=== PATIENT | female | born 1950 | race African-American/Black ===

== ENCOUNTER 2018-10-09 17:23 | Inpatient (IN) ==
[2018-10-09] MEDS ORDERED: diphenhydrAMINE CAP 25 MG CAPSULE PO PRN (18:36)
[2018-10-09] MEDS ORDERED: DOCUSATE SODIUM 100 MG CAPSULE PO PRN (18:36)
[2018-10-09] MEDS ORDERED: POTASSIUM CHLORIDE 20 MEQ TABLET PO PRN (18:36)
[2018-10-09] MEDS ORDERED: BISACODYL 5 MG TABLET PO PRN (18:36)
[2018-10-09] MEDS ORDERED: ACETAMINOPHEN 325 MG TABLET PO PRN (18:36)
[2018-10-09] MEDS ORDERED: MORPHINE 4 MG/1 ML VIAL IV PRN (18:36)
[2018-10-09] MEDS ORDERED: ONDANSETRON 4 MG/2 ML VIAL IV PRN (18:36)
[2018-10-09] MEDS ORDERED: guaiFENesin/DM ER 600-30 MG TABLET PO PRN (18:36)
[2018-10-09] MEDS ORDERED: ZALEPLON 5 MG CAPSULE PO PRN (18:36)
[2018-10-09] MEDS ORDERED: MAGNESIUM SULF RIDER 2 GM in PREMIX 1 EACH IV PRN (18:36)
[2018-10-09] MEDS ORDERED: MAGNESIUM SULF RIDER 4 GM in PREMIX 1 EACH IV PRN (18:36)
[2018-10-10 04:45] LABS: Basophils % 0.3 % (0.0-0.8); Eosinophils # 0.2 10*3/uL (0.0-0.87); Eosinophils % 2.2 % (0.00-10.9); Hematocrit 40.9 VOL% (35.7-47.0); Hemoglobin 12.4 GM/DL (12.0-16.0); Immature Granulocytes % 0.4 %; Immature Granulocytes Absolute 0.03 #; Lymphocytes # 2.5 10*3/uL (1.4-4.0); Lymphocytes % 32.1 % (21.3-54.2); Mean Corpuscular HGB Conc 30.3 GM/DL (32-36); Mean Corpuscular Hemoglobin 25 PG (27-34); Mean Corpuscular Volume 83.8 FL (87-102); Mean Platelet Volume 9.7 FL (9.6-12.0); Monocytes # 0.8 10*3/uL (0.11-0.8); Monocytes % 10.5 % (1.7-12.7); Neutrophils # 4.3 10*3/uL (1.4-7.4); Neutrophils % 54.5 % (38.7-73.9); Platelet Count 308 T/CUMM (130-400); Red Blood Count 4.88 MC/CUMM (3.8-5.5); Red Cell Distribution Width 15.2 % (9.3-17.3); White Blood Count 7.8 T/CUMM (4-12)
[2018-10-10 04:53] LABS: PT Patient Result 10.8 SECS
[2018-10-10 05:14] LABS: Calcium 8.5 MG/DL (8.5-10.1); Osmolality,Calculated 285.1 MOS/KG (273-304); Potassium 3.8 MMOL/L (3.5-5.1)
[2018-10-10] MEDS: PANTOPRAZOLE 40 MG TABLET PO SCH (12:14)
[2018-10-10] MEDS: ASPIRIN EC 81 MG TABLET PO SCH (12:54)
[2018-10-10] MEDS ORDERED: ACETAMINOPHEN 325 MG TABLET PO PRN (16:34)
[2018-10-10] MEDS ORDERED: IBUPROFEN 600 MG TABLET PO PRN (21:41)
[2018-10-11 04:47] LABS: Basophils % 0.2 % (0.0-0.8); Eosinophils # 0.2 10*3/uL (0.0-0.87); Eosinophils % 2.1 % (0.00-10.9); Hematocrit 40.3 VOL% (35.7-47.0); Hemoglobin 12.4 GM/DL (12.0-16.0); Immature Granulocytes % 0.2 %; Immature Granulocytes Absolute 0.02 #; Lymphocytes # 1.9 10*3/uL (1.4-4.0); Lymphocytes % 23.3 % (21.3-54.2); Mean Corpuscular HGB Conc 30.8 GM/DL (32-36); Mean Corpuscular Hemoglobin 26 PG (27-34); Mean Corpuscular Volume 83.6 FL (87-102); Mean Platelet Volume 9.1 FL (9.6-12.0); Monocytes # 1.1 10*3/uL (0.11-0.8); Monocytes % 13.2 % (1.7-12.7); Platelet Count 277 T/CUMM (130-400); Red Blood Count 4.82 MC/CUMM (3.8-5.5); Red Cell Distribution Width 15.1 % (9.3-17.3); White Blood Count 8.1 T/CUMM (4-12)
[2018-10-11 05:04] LABS: Calcium 8.2 MG/DL (8.5-10.1); Osmolality,Calculated 279.5 MOS/KG (273-304); Potassium 3.7 MMOL/L (3.5-5.1)
[2018-10-11 05:23] LABS: Calcium 8.2 MG/DL (8.5-10.1); Osmolality,Calculated 282.4 MOS/KG (273-304); Potassium 3.7 MMOL/L (3.5-5.1)
[2018-10-11] MEDS ORDERED: DIAZEPAM 5 MG TABLET PO ONE (07:16)
[2018-10-11] MEDS ORDERED: diphenhydrAMINE CAP 25 MG CAPSULE PO ONE (07:18)
[2018-10-11] MEDS ORDERED: HEPARIN/NACL 0.9% 2 UNITS/ML 500 ML IV ONE (08:37)
[2018-10-11] MEDS ORDERED: LIDOCAINE 1% 20 ML VIAL ONE (08:37)
[2018-10-11] MEDS ORDERED: MIDAZOLAM 2 MG/2 ML VIAL ONE ×6 (08:43→10:43)
[2018-10-11] MEDS ORDERED: fentaNYL 100 MCG/2 ML VIAL ONE ×2 (08:43→10:06)
[2018-10-11] MEDS ORDERED: amLODIPine 10 MG TABLET PO SCH (09:00)
[2018-10-11] MEDS ORDERED: HEPARIN 5,000 UNIT/1 ML VIAL ONE (09:38)
[2018-10-11] MEDS ORDERED: ISOPROTERENOL 1 MG/5 ML VIAL IV ONE (09:48)
[2018-10-11] MEDS ORDERED: amLODIPine 5 MG TABLET PO SCH (11:34)
[2018-10-11] MEDS: ASPIRIN EC 81 MG TABLET PO SCH (12:32)
[2018-10-11] MEDS: ENOXAPARIN 40 MG/0.4 ML SYRINGE SUBCUT SCH (12:32)
[2018-10-11] MEDS: METOPROLOL TARTRATE 50 MG TABLET PO SCH ×2 (12:32→21:59)
[2018-10-11] MEDS: PANTOPRAZOLE 40 MG TABLET PO SCH (12:32)
[2018-10-11] MEDS: LOSARTAN 25 MG TABLET PO SCH (12:33)
[2018-10-11] MEDS: amLODIPine 5 MG TABLET PO SCH (12:39)
[2018-10-12 04:07] LABS: Basophils % 0.2 % (0.0-0.8); Eosinophils # 0.1 10*3/uL (0.0-0.87); Eosinophils % 0.9 % (0.00-10.9); Hematocrit 41.7 VOL% (35.7-47.0); Hemoglobin 13.1 GM/DL (12.0-16.0); Immature Granulocytes % 0.4 %; Immature Granulocytes Absolute 0.05 #; Lymphocytes # 1.8 10*3/uL (1.4-4.0); Lymphocytes % 16.1 % (21.3-54.2); Mean Corpuscular HGB Conc 31.4 GM/DL (32-36); Mean Corpuscular Hemoglobin 26 PG (27-34); Mean Corpuscular Volume 82.7 FL (87-102); Mean Platelet Volume 9.3 FL (9.6-12.0); Monocytes # 1.4 10*3/uL (0.11-0.8); Monocytes % 12.3 % (1.7-12.7); Neutrophils # 7.9 10*3/uL (1.4-7.4); Neutrophils % 70.1 % (38.7-73.9); Platelet Count 290 T/CUMM (130-400); Red Blood Count 5.04 MC/CUMM (3.8-5.5); Red Cell Distribution Width 15.1 % (9.3-17.3); White Blood Count 11.2 T/CUMM (4-12)
[2018-10-12 04:43] LABS: Calcium 8.3 MG/DL (8.5-10.1); Osmolality,Calculated 273.8 MOS/KG (273-304)
[2018-10-12 07:40] VITALS: BP 151/77
[2018-10-12] MEDS: PANTOPRAZOLE 40 MG TABLET PO SCH (08:52)
[2018-10-12] MEDS: LOSARTAN 25 MG TABLET PO SCH (08:52)
[2018-10-12] MEDS: ENOXAPARIN 40 MG/0.4 ML SYRINGE SUBCUT SCH (08:52)
[2018-10-12] MEDS: METOPROLOL TARTRATE 50 MG TABLET PO SCH (08:52)
[2018-10-12] MEDS: amLODIPine 5 MG TABLET PO SCH (08:52)
[2018-10-12] MEDS: ASPIRIN EC 81 MG TABLET PO SCH (08:52)
[2018-10-13] MEDS ORDERED: LOSARTAN 50 MG TABLET PO SCH (09:00)
== END 2018-10-12 13:00 | disposition home or self-care (01) | DRG 274 ==
LOC: N.TELEN 17:23
PROVIDERS: ADMIT Internal Medicine Clinical Cardiac Electrophysiology; ATTEND Internal Medicine Clinical Cardiac Electrophysiology

== ENCOUNTER 2018-11-06 05:38 | Inpatient (IN) ==
[2018-10-31 16:22] LABS: Apearance,Urine CLEAR (Clear); Bacteria,Urine Occasional /HPF (Few); Bilirubin,Urine Negative (Negative); Blood, Urine Small mg/dL (Negative); Glucose,Urine (UA) Negative (Negative); Ketones,Urine Negative (Negative); Mucus,Urine Occasional /LPF (Occasional); Nitrite,Urine Negative (Negative); Protein,Urine Negative; RBC,Urine 2 /HPF (0-4); Squamous Epithelial Cell,Urine Occasional /HPF (0-10); Urine Color Yellow (Yellow); Urine Specific Gravity 1.017 (1.001-1.035); Urine Urobilinogen < 2.0 EU/DL (0.2-1.0); WBC,Urine 5 /HPF (0-6)
[2018-11-06] MEDS ORDERED: FAMOTIDINE 20 MG TABLET PO ONE (06:45)
[2018-11-06] MEDS ORDERED: DIAZEPAM 5 MG TABLET PO ONE (06:45)
[2018-11-06] MEDS ORDERED: LACTATED RINGERS 1,000 ML IV SCH (07:00)
[2018-11-06] MEDS ORDERED: VANCOMYCIN INJ 1,000 MG in SODIUM CHLORIDE 0.9% 250 ML IV ONE (08:00)
[2018-11-06] MEDS ORDERED: ceFAZolin 1,000 MG in SYRINGE 1 EACH IV ONE (08:00)
[2018-11-06] MEDS ORDERED: ceFAZolin 1,000 MG VIAL ONE (08:42)
[2018-11-06] MEDS ORDERED: VANCOMYCIN 1,000 MG VIAL ONE (08:42)
[2018-11-06] MEDS ORDERED: DIAZEPAM 5 MG TABLET ONE ×2 (08:43)
[2018-11-06] MEDS ORDERED: FAMOTIDINE 20 MG TABLET ONE (08:43)
[2018-11-06] MEDS ORDERED: ROPIVACAINE 0.5% 30 ML VIAL ONE (08:47)
[2018-11-06] MEDS ORDERED: BUPIVACAINE SPINAL 0.75% 2 ML AMP SPINAL ONE (08:59)
[2018-11-06] MEDS ORDERED: BACITRACIN OINT 0.9 GM PACK TOP ONE (09:38)
[2018-11-06] MEDS ORDERED: MORPHINE 4 MG/1 ML VIAL IV PRN ×2 (09:53)
[2018-11-06] MEDS ORDERED: MAGNESIUM HYDROXIDE SUSP 30 ML UDCUP PO PRN (09:53)
[2018-11-06] MEDS ORDERED: ZALEPLON 5 MG CAPSULE PO PRN (09:53)
[2018-11-06] MEDS ORDERED: ONDANSETRON 4 MG/2 ML VIAL IV PRN (09:53)
[2018-11-06] MEDS ORDERED: diphenhydrAMINE CAP 25 MG CAPSULE PO PRN (09:53)
[2018-11-06] MEDS ORDERED: oxyCODONE IR 5 MG TABLET PO PRN ×2 (09:53)
[2018-11-06] MEDS ORDERED: TRANEXAMIC ACID 1,000 MG/10 ML VIAL ONE (10:09)
[2018-11-06] MEDS ORDERED: PROPOFOL 500 MG/50 ML BOTTLE IV ONE (11:15)
[2018-11-06] MEDS ORDERED: PHENYLEPHRINE 1 MG/10 ML SYRINGE IV ONE (11:15)
[2018-11-06] MEDS ORDERED: SODIUM CHLORIDE 0.9% 250 ML IV ONE (11:15)
[2018-11-06] MEDS ORDERED: fentaNYL 100 MCG/2 ML VIAL ONE (11:15)
[2018-11-06] MEDS ORDERED: MIDAZOLAM 2 MG/2 ML VIAL ONE (11:15)
[2018-11-06] MEDS ORDERED: DEXAMETHASONE 4 MG/1 ML VIAL ONE (11:15)
[2018-11-06] MEDS: KETOROLAC 30 MG/1 ML VIAL IV SCH ×2 (13:19→19:40)
[2018-11-06 13:27] LABS: Basophils % 0.1 % (0.0-0.8); Eosinophils # 0.1 10*3/uL (0.0-0.87); Eosinophils % 0.5 % (0.00-10.9); Hematocrit 41.7 VOL% (35.7-47.0); Hemoglobin 12.8 GM/DL (12.0-16.0); Immature Granulocytes % 0.6 %; Immature Granulocytes Absolute 0.06 #; Lymphocytes # 1.2 10*3/uL (1.4-4.0); Lymphocytes % 12.1 % (21.3-54.2); Mean Corpuscular HGB Conc 30.7 GM/DL (32-36); Mean Corpuscular Hemoglobin 26 PG (27-34); Mean Corpuscular Volume 84.1 FL (87-102); Mean Platelet Volume 10.5 FL (9.6-12.0); Monocytes # 0.2 10*3/uL (0.11-0.8); Monocytes % 2.5 % (1.7-12.7); Neutrophils # 8.1 10*3/uL (1.4-7.4); Neutrophils % 84.2 % (38.7-73.9); Platelet Count 279 T/CUMM (130-400); Red Blood Count 4.96 MC/CUMM (3.8-5.5); White Blood Count 9.7 T/CUMM (4-12)
[2018-11-06 13:43] LABS: Calcium 8.9 MG/DL (8.5-10.1); Osmolality,Calculated 282.3 MOS/KG (273-304); Potassium 4.3 MMOL/L (3.5-5.1)
[2018-11-06] MEDS: ACETAMINOPHEN 500 MG TABLET PO SCH ×2 (14:05→21:03)
[2018-11-06] MEDS: ceFAZolin 2,000 MG in PREMIX 1 EACH IV SCH ×2 (14:10→21:08)
[2018-11-06] MEDS: LACTATED RINGERS 1,000 ML IV SCH ×3 (15:07→23:13)
[2018-11-06] MEDS: DOCUSATE SODIUM 100 MG CAPSULE PO SCH (21:02)
[2018-11-06] MEDS: METOPROLOL TARTRATE 50 MG TABLET PO SCH (21:07)
[2018-11-07] MEDS: ACETAMINOPHEN 500 MG TABLET PO SCH ×2 (01:22→09:36)
[2018-11-07] MEDS: KETOROLAC 30 MG/1 ML VIAL IV SCH (01:23)
[2018-11-07] MEDS: LACTATED RINGERS 1,000 ML IV SCH (04:19)
[2018-11-07 06:06] LABS: Basophils % 0.1 % (0.0-0.8); Hemoglobin 11.4 GM/DL (12.0-16.0); Immature Granulocytes % 0.4 %; Immature Granulocytes Absolute 0.05 #; Lymphocytes # 1.1 10*3/uL (1.4-4.0); Lymphocytes % 8.9 % (21.3-54.2); Mean Corpuscular HGB Conc 30.8 GM/DL (32-36); Mean Corpuscular Hemoglobin 26 PG (27-34); Mean Corpuscular Volume 83.5 FL (87-102); Mean Platelet Volume 10.6 FL (9.6-12.0); Monocytes # 0.9 10*3/uL (0.11-0.8); Monocytes % 7.2 % (1.7-12.7); Neutrophils # 10.4 10*3/uL (1.4-7.4); Neutrophils % 83.4 % (38.7-73.9); Platelet Count 241 T/CUMM (130-400); Red Blood Count 4.43 MC/CUMM (3.8-5.5); White Blood Count 12.4 T/CUMM (4-12)
[2018-11-07] MEDS: FONDAPARINUX 2.5 MG/0.5 ML SYRINGE SUBCUT SCH (06:14)
[2018-11-07 06:16] LABS: Calcium 8.8 MG/DL (8.5-10.1); Osmolality,Calculated 280.5 MOS/KG (273-304); Potassium 3.9 MMOL/L (3.5-5.1)
[2018-11-07] MEDS ORDERED: KETOROLAC 30 MG/1 ML VIAL IV SCH (06:30)
[2018-11-07] MEDS: DOCUSATE SODIUM 100 MG CAPSULE PO SCH ×2 (10:05→20:38)
[2018-11-07] MEDS: LOSARTAN 50 MG TABLET PO SCH (10:05)
[2018-11-07] MEDS: amLODIPine 10 MG TABLET PO SCH (10:06)
[2018-11-07] MEDS: METOPROLOL TARTRATE 50 MG TABLET PO SCH ×2 (10:06→20:38)
[2018-11-07] MEDS: PANTOPRAZOLE 40 MG TABLET PO SCH (10:07)
[2018-11-07] MEDS: CELECOXIB 200 MG CAPSULE PO SCH (15:04)
[2018-11-08 05:09] LABS: Basophils % 0.1 % (0.0-0.8); Eosinophils # 0.1 10*3/uL (0.0-0.87); Eosinophils % 0.7 % (0.00-10.9); Hematocrit 33.4 VOL% (35.7-47.0); Hemoglobin 10.1 GM/DL (12.0-16.0); Immature Granulocytes % 0.5 %; Immature Granulocytes Absolute 0.07 #; Lymphocytes # 2.4 10*3/uL (1.4-4.0); Lymphocytes % 17.8 % (21.3-54.2); Mean Corpuscular HGB Conc 30.2 GM/DL (32-36); Mean Corpuscular Hemoglobin 25 PG (27-34); Mean Corpuscular Volume 83.7 FL (87-102); Mean Platelet Volume 10.8 FL (9.6-12.0); Monocytes # 1.4 10*3/uL (0.11-0.8); Monocytes % 10.4 % (1.7-12.7); Neutrophils # 9.6 10*3/uL (1.4-7.4); Neutrophils % 70.5 % (38.7-73.9); Platelet Count 223 T/CUMM (130-400); Red Blood Count 3.99 MC/CUMM (3.8-5.5); White Blood Count 13.6 T/CUMM (4-12)
[2018-11-08] MEDS: FONDAPARINUX 2.5 MG/0.5 ML SYRINGE SUBCUT SCH (06:29)
[2018-11-08] MEDS ORDERED: ASPIRIN EC 81 MG TABLET PO SCH (09:00)
[2018-11-08] MEDS: CELECOXIB 200 MG CAPSULE PO SCH (09:23)
[2018-11-08] MEDS: DOCUSATE SODIUM 100 MG CAPSULE PO SCH (09:23)
[2018-11-08] MEDS: PANTOPRAZOLE 40 MG TABLET PO SCH (09:24)
[2018-11-08] MEDS: LOSARTAN 50 MG TABLET PO SCH (09:24)
[2018-11-08] MEDS: METOPROLOL TARTRATE 50 MG TABLET PO SCH (09:24)
[2018-11-08] MEDS: amLODIPine 10 MG TABLET PO SCH (09:24)
[2018-11-08 11:59] VITALS: BP 150/82
== END 2018-11-08 14:44 | disposition home health service (06) | DRG 470 ==
LOC: N.SDSINP 05:38 → N.OR 05:38 → N.SDSINP 09:53 → N.3E 12:05
PROVIDERS: ADMIT Orthopaedic Surgery; ATTEND Orthopaedic Surgery

== ENCOUNTER 2022-04-26 05:30 | Observation (INO) ==
[2022-04-26] MEDS ORDERED: ceFAZolin 2,000 MG/50 ML DUPLEX IV ONE (06:00)
[2022-04-26] MEDS ORDERED: VANCOMYCIN INJ 1,000 MG in SODIUM CHLORIDE 0.9% 250 ML IV ONE (06:00)
[2022-04-26] MEDS ORDERED: FAMOTIDINE 20 MG TABLET PO ONE (06:44)
[2022-04-26] MEDS ORDERED: ACETAMINOPHEN 500 MG TABLET PO ONE (06:44)
[2022-04-26] MEDS ORDERED: BACITRACIN OINT 0.9 GM PACK TOP ONE (06:47)
[2022-04-26] MEDS ORDERED: KETAMINE 500 MG/10 ML VIAL ONE (06:53)
[2022-04-26] MEDS ORDERED: LIDOCAINE 2% 5 ML VIAL ONE (06:53)
[2022-04-26] MEDS ORDERED: TRANEXAMIC ACID 1,000 MG/10 ML VIAL ONE (06:53)
[2022-04-26] MEDS ORDERED: buprenorphine HCL 0.3 MG/ML VIAL ONE (06:53)
[2022-04-26] MEDS ORDERED: BUPIVACAINE SPINAL 0.75% 2 ML AMP SPINAL ONE (06:54)
[2022-04-26] MEDS ORDERED: LACTATED RINGERS 1,000 ML IV SCH (07:00)
[2022-04-26] MEDS ORDERED: DEXMEDETOMIDINE 200 MCG/2 ML VIAL ONE (07:06)
[2022-04-26 07:09] LABS: PT Patient Result 11.2 SECS (10.5-12.0); Partial Thromboplastin Time 27.3 SECS (23.7-32.9)
[2022-04-26] MEDS: LACTATED RINGERS 1,000 ML IV SCH ×5 (07:13→23:40)
[2022-04-26] MEDS ORDERED: BUPIVACAINE MPF 0.5% 30 ML VIAL ONE (07:41)
[2022-04-26] MEDS ORDERED: DEXAMETHASONE 4 MG/1 ML VIAL ONE (07:42)
[2022-04-26] MEDS ORDERED: ePHEDrine 50 MG/ML VIAL ONE (08:37)
[2022-04-26] MEDS ORDERED: ONDANSETRON 4 MG/2 ML VIAL IV PRN (08:41)
[2022-04-26] MEDS ORDERED: diphenhydrAMINE CAP 25 MG CAPSULE PO PRN (08:41)
[2022-04-26] MEDS ORDERED: MORPHINE 2 MG/1 ML SYRINGE IV PRN ×2 (08:41)
[2022-04-26] MEDS ORDERED: ZALEPLON 5 MG CAPSULE PO PRN (08:41)
[2022-04-26] MEDS ORDERED: MAGNESIUM HYDROXIDE SUSP 30 ML UDCUP PO PRN (08:41)
[2022-04-26] MEDS ORDERED: LACTATED RINGERS 1,000 ML IV ONE (09:07)
[2022-04-26] MEDS: KETOROLAC 15 MG/1 ML VIAL IV SCH ×3 (12:15→20:48)
[2022-04-26] MEDS: ceFAZolin 2,000 MG/50 ML DUPLEX IV SCH (17:03)
[2022-04-26] MEDS: DOCUSATE SODIUM 100 MG CAPSULE PO SCH (20:47)
[2022-04-27] MEDS: LACTATED RINGERS 1,000 ML IV SCH (00:42)
[2022-04-27] MEDS ORDERED: ceFAZolin 2,000 MG/50 ML DUPLEX IV ONE (00:43)
[2022-04-27] MEDS: ceFAZolin 2,000 MG/50 ML DUPLEX IV SCH (00:45)
[2022-04-27] MEDS: FONDAPARINUX 2.5 MG/0.5 ML SYRINGE SUBCUT SCH (04:27)
[2022-04-27 04:41] LABS: Basophils % 0.1 % (0.0-0.8); Hematocrit 39.6 VOL% (35.7-47.0); Hemoglobin 12.3 GM/DL (12.0-16.0); Immature Granulocytes % 0.5 %; Immature Granulocytes Absolute 0.06 #; Mean Corpuscular HGB Conc 31.1 GM/DL (32-36); Mean Corpuscular Volume 85.7 FL (87-102); Mean Platelet Volume 9.6 FL (9.6-12.0); Monocytes # 1.2 10*3/uL (0.11-0.8); Monocytes % 10.1 % (1.7-12.7); Neutrophils % 81.3 % (38.7-73.9); Platelet Count 262 T/CUMM (130-400); Red Blood Count 4.62 MC/CUMM (3.8-5.5); Red Cell Distribution Width 15.3 % (9.3-17.3); White Blood Count 12.2 T/CUMM (4-12)
[2022-04-27 05:07] LABS: Calcium 9.1 MG/DL (8.5-10.1); Osmolality,Calculated 273.8 MOS/KG (273-304); Potassium 4.2 MMOL/L (3.5-5.1)
[2022-04-27] MEDS: DOCUSATE SODIUM 100 MG CAPSULE PO SCH ×2 (08:49→20:47)
[2022-04-27] MEDS: METOPROLOL TARTRATE 50 MG TABLET PO SCH (08:49)
[2022-04-27] MEDS: LOSARTAN 50 MG TABLET PO SCH (08:50)
[2022-04-27] MEDS: FUROSEMIDE 20 MG TABLET PO SCH (08:50)
[2022-04-27] MEDS: PANTOPRAZOLE 40 MG TABLET PO SCH (08:50)
[2022-04-27] MEDS: amLODIPine 10 MG TABLET PO SCH (08:51)
[2022-04-28] MEDS: FONDAPARINUX 2.5 MG/0.5 ML SYRINGE SUBCUT SCH (04:47)
[2022-04-28 05:11] LABS: Basophils % 0.2 % (0.0-0.8); Eosinophils # 0.1 10*3/uL (0.0-0.87); Eosinophils % 0.6 % (0.00-10.9); Hematocrit 37.8 VOL% (35.7-47.0); Hemoglobin 11.5 GM/DL (12.0-16.0); Immature Granulocytes % 0.3 %; Immature Granulocytes Absolute 0.04 #; Lymphocytes # 1.7 10*3/uL (1.4-4.0); Lymphocytes % 14.7 % (21.3-54.2); Mean Corpuscular HGB Conc 30.4 GM/DL (32-36); Mean Corpuscular Volume 85.7 FL (87-102); Mean Platelet Volume 10.3 FL (9.6-12.0); Monocytes # 1.3 10*3/uL (0.11-0.8); Monocytes % 11.6 % (1.7-12.7); Neutrophils % 72.6 % (38.7-73.9); Platelet Count 243 T/CUMM (130-400); Red Blood Count 4.41 MC/CUMM (3.8-5.5); Red Cell Distribution Width 15.3 % (9.3-17.3); White Blood Count 11.5 T/CUMM (4-12)
[2022-04-28 09:03] VITALS: BP 166/77
[2022-04-28] MEDS: DOCUSATE SODIUM 100 MG CAPSULE PO SCH (09:33)
[2022-04-28] MEDS: METOPROLOL TARTRATE 50 MG TABLET PO SCH (09:33)
[2022-04-28] MEDS: PANTOPRAZOLE 40 MG TABLET PO SCH (09:34)
[2022-04-28] MEDS: LOSARTAN 50 MG TABLET PO SCH (09:34)
[2022-04-28] MEDS: FUROSEMIDE 20 MG TABLET PO SCH (09:34)
[2022-04-28] MEDS: amLODIPine 10 MG TABLET PO SCH (09:34)
== END 2022-04-28 12:27 | disposition home health service (06) ==
LOC: N.3E 05:30 → N.OR 05:30 → N.SDSINP 05:30 → EDSTATUS 12:30 → N.3E 15:34
PROVIDERS: ADMIT Orthopaedic Surgery; ATTEND Orthopaedic Surgery